=== PATIENT | female | born 1965 | race Caucasian/White ===

== ENCOUNTER → 2019-09-21 15:44 | Outpatient (CLI) | payer BC, SELFPAY ==
--- NOTE | ~2019-09-21 | XR_ITS ---
EXAMINATION: XR chest 2V 09/21/2019 16:10 INDICATION: Acute upper respiratory infection PROCEDURE: 2 view chest COMPARISON: 05/21/2010 FINDINGS: The lungs are clear. The cardiomediastinal silhouette is within normal limits. There are no pleural effusions. There is no pneumothorax suspected. IMPRESSION: 1: NO ACUTE CARDIOPULMONARY DISEASE. Reviewed, dictated and finalized at location A. ON FURNACE OPERATOR HELPER
== END ==
PROVIDERS: PCP Family Medicine; Visit Provider Family Medicine
DX: J06.9 Acute upper respiratory infection, unspecified (principal)
CPT/HCPCS: 71046

== ENCOUNTER → 2020-06-30 15:53 | Outpatient (CLI) | payer BC, SELFPAY ==
--- NOTE | ~2020-06-30 | MM_ITS ---
EXAMINATION: MM screening [facility] BI w elva HISTORY: Screening mammogram TECHNIQUE: Craniocaudal and mediolateral oblique 3-D tomosynthesis images were obtained and synthetic 2-D images were generated. CAD analysis was submitted and interpreted. COMPARISON: 12/11/2018, 11/30/2018, 10/14/2017, 09/28/2017, 06/11/2016 BREAST PARENCHYMAL COMPOSITION: There are scattered areas of fibroglandular density. FINDINGS: There is no evidence of suspicious mass, calcification, or architectural distortion to sugg est malignancy in either breast. There has been no suspicious interval change. IMPRESSION: 1. No mammographic evidence of malignancy. 2. Recommend routine screening mammography in one year. BI-RADS Category 1: Negative Reviewed, dictated and finalized at location A. ODONTIC ASSISTANT
== END ==
PROVIDERS: PCP Family Medicine; Visit Provider Obstetrics & Gynecology Gynecology
DX: Z12.31 Encounter for screening mammogram for malignant neoplasm of breast (principal)
CPT/HCPCS: 77063; 77067

== ENCOUNTER → 2021-10-16 16:31 | Outpatient (CLI) | payer BC, SELFPAY ==
--- NOTE | ~2021-10-16 | MM_ITS ---
EXAMINATION: MM screening [facility] BI w elva HISTORY: Screening mammogram TECHNIQUE: Craniocaudal and mediolateral oblique 3-D tomosynthesis images were obtained and synthetic 2-D images were generated. CAD analysis was submitted and interpreted. COMPARISON: 06/30/2020, 12/11/2018, 11/30/2018 BREAST PARENCHYMAL COMPOSITION: There are scattered areas of fibroglandular density. FINDINGS: There is no evidence of suspicious mass, calcification, or architectural distortion to sugg est malignancy in either breast. There has been no suspicious interval change. IMPRESSION: 1. No mammographic evidence of malignancy. 2. Recommend routine screening mammography in one year. BI-RADS Category 1: Negative Reviewed, dictated and finalized at location A. ON OPERATOR
== END ==
PROVIDERS: PCP Family Medicine; Visit Provider Nurse Practitioner
DX: Z12.31 Encounter for screening mammogram for malignant neoplasm of breast (principal)
CPT/HCPCS: 77063; 77067

== ENCOUNTER → 2021-11-17 18:12 | Outpatient (CLI) | payer BC, SELFPAY ==
--- NOTE | ~2021-11-17 | DEXA_ITS ---
Bone Density Report Name: NAZIA ZARATE Age: 56 Sex: Female Ethnicity: White Date of : 1965 Indication: postmenopausal; screening for osteoporosis; prior fracture; Referring Provider: Maryan, Christina Study: Bone densitometry was performed. Exam Date: November 17, 2021 Accession number: [id number] Bone Density: Region BMD T-score Z-score Classification AP Spine (L1-L4) 0.929 -1.1 0.3 Osteopenia Femoral Neck (Left) 0.605 -2.2 -1.0 Osteopenia Total Hip (Left) 0.782 -1.3 -0.4 Osteopenia Femoral Neck (Right) 0.585 -2.4 -1.2 Osteopenia Total Hip (Right) 0.743 -1.6 -0.7 Osteopenia Total Hip Mean 0.763 -1.5 -0.6 Osteopenia World Health Organization criteria for BMD impression classify patients as: Normal (T-score at or above -1.0), Osteopenia (T-score between -1.0 and -2.5), or Osteoporosis (T-score at or below -2.5). 10-year Fracture Risk(1): Major Osteoporotic Fracture 17% Hip Fracture 3.0% Reported Risk Factors: [place] (), Neck BMD=0.585, BMI=22.7, previous fracture (1) FRAX(R) Version 3.08. Fracture probability calculated for an untreated patient. Fracture probability may be lower if the patient has received treatment. Previous Exams: Region Exam Age BMD T-score BMD Change BMD Change Date g/cm2 vs Baseline vs Previous AP Spine(L1-L4) 11/17/2021 56 0.929 -1.1 -0.091* -0.091* 06/11/2016 51 1.020 -0.2 Total Hip(Left) 11/17/2021 56 0.782 -1.3 -0.080* -0.080* 06/11/2016 51 0.862 -0.7 Total Hip(Right) 11/17/2021 56 0.743 -1.6 -0.083* -0.083* 06/11/2016 51 0.826 -1.0 *Denotes significance at 95% confidence level, LSC for AP Spine = 0.022 g/cm2, LSC for Total Hip = 0.027 g/cm2 Clinical Information Provided by Patient: Has had a low trauma fracture Has used the following medications: Vitamin D, MULT VIT Patient maximum height was 61.5 Menopause Age: 47 No regular weight bearing exercise Drinks caffeinated beverages Onset of menses at age 12 Number of children 3 Impression: The patient has low bone mass, based on the Right Femoral Neck T-score. The patient has an estimated ten-year risk of hip fracture of 3% and an estimated ten-year risk of major fracture of 17%, based on the WHO FRAX algorithm. The patient has risk factors, including: previous fracture. The BMD for the AP Spine(L1-L4) decreased, changing by -0.091 since the last DXA exam. The BMD for the T
== END ==
PROVIDERS: PCP Family Medicine; Visit Provider Nurse Practitioner
DX: Z13.820 Encounter for screening for osteoporosis (principal); M85.88 Other specified disorders of bone density and structure, other site; M85.852 Other specified disorders of bone density and structure, left thigh; M85.851 Other specified disorders of bone density and structure, right thigh
CPT/HCPCS: 77080

== ENCOUNTER → 2022-04-21 16:16 | Outpatient (CLI) | payer OTHER, SELFPAY ==
--- NOTE | ~2022-04-21 | XR_ITS ---
EXAM: XR lumbar spine 2-3V DATE: 04/21/2022 16:47 HISTORY: Right radiculopathy, Low back pain . COMPARISON: 02/15/2019. FINDINGS: 5 nonrib-bearing lumbar-type vertebral bodies. Pedicles intact. Normal vertebral body alig nment. Vertebral body heights preserved. Moderate disc space narrowing at L3-4. Moderate narrowing at L4-5 and L5-S1, with vacuum phenomenon at L4-5. Mild narrowing at the remaining lumbar levels. Facet sclerosis and hypertrophy in the lower lumbar spine. No fracture or dislocation. IMPRESSION: Multilevel degenerative disc disease and lumbar spine, severe at L4-5. Multilevel facet a rthropathy. Reviewed, dictated and finalized at location K. IMPRESSION: Multilevel degenerative disc disease and lumbar spine, severe at L4 -5. Multilevel facet arthropathy.
--- NOTE | ~2022-04-21 | XR_ITS ---
EXAM: XR hip RT min 2V DATE: 04/21/2022 16:47 HISTORY: Right hip pain . COMPARISON: 02/18/2016. FINDINGS: Normal mineralization. No fracture or dislocation. No lytic or blastic lesion. Moderate sc lerosis and narrowing and osteophytosis in the right hip. Degenerative changes in the lumbar spine. N o erosion or periosteal change. Soft tissues within normal limits. IMPRESSION: Moderate right hip osteoarthritis. Reviewed, dictated and finalized at location K.
== END ==
PROVIDERS: PCP Family Medicine; Visit Provider Chiropractor
DX: M16.11 Unilateral primary osteoarthritis, right hip (principal); M51.36 Other intervertebral disc degeneration, lumbar region
CPT/HCPCS: 72100; 73502

== ENCOUNTER → 2022-08-27 07:55 | Outpatient (CLI) | payer OTHER, SELFPAY ==
--- NOTE | ~2022-08-27 | US_ITS ---
US abdomen limited DATE: 08/27/2022 08:31 INDICATION: Prior abnormal liver scan. History of cholelithiasis. TECHNIQUE: Real-time imaging of liver, pancreas, gallbladder COMPARISON: 01/24/[address] abdomen pelvis 01/13/2018 abdominal ultrasound examination FINDINGS: The abdominal aorta is of normal caliber. Inferior vena cava is unremarkable. No pancreatic mass lesion or pancreatic duct dilatation is noted. Multiple hepatic cysts are noted, measuring up to approximately 4.5 cm maximal dimension. Normal hepatopedal portal venous flow direction. There is cholelithiasis. There is mild thickening of the gallbladder wall Negative sonographic Marino's sign. IMPRESSION: Cholelithiasis and mild gallbladder wall thickening; negative sonographic Marino's sign Multiple hepatic cysts Reviewed, dictated and finalized at Location A. Reviewed, dictated and finalized at location B. ER CARE WORKER IMPRESSION: Cholelithiasis and mild gallbladder wall thickening; negative sonog raphic Marino's sign Multiple hepatic cysts
== END ==
PROVIDERS: PCP Family Medicine; Visit Provider Nurse Practitioner Family
DX: R93.2 Abnormal findings on diagnostic imaging of liver and biliary tract (principal); K80.20 Calculus of gallbladder without cholecystitis without obstruction; K76.89 Other specified diseases of liver
CPT/HCPCS: 76705

== ENCOUNTER → 2022-10-11 08:46 | Outpatient (CLI) | payer OTHER, SELFPAY ==
--- NOTE | ~2022-10-11 | CT_ITS ---
CT of the Abdomen and Pelvis: Indication: Liver lesion, abdominal pain Technique: 2.5 mm axial scans were obtained through the abdomen and pelvis prior to and following in travenous administration of 100 cc of Omnipaque 350. Dose reduction technique was used on this scan b y utilizing automated exposure control and iterative reconstruction technique. The dose-length produc t (DLP) was 581.72 mGy-cm. COMPARISON: CT dated 01/24/2018, ultrasound dated 08/27/2022 Findings: Scans through the lung bases are unremarkable. Nonenhancing hepatic cysts are present, largest of which is in the anterior right hepatic lobe, measu ring 3.7 cm in diameter. The spleen, pancreas, adrenals and kidneys are within normal limits. Small g allstones present. No evidence of aortic aneurysm. No lymphadenopathy. No bowel obstruction or bowel wall thickening. There is no evidence to suggest acute appendicitis. Images through the pelvis were performed. Urinary bladder unremarkable. No adnexal mass seen. No asci lara. Impression: Hepatic cysts. Cholelithiasis. Reviewed, dictated and finalized at location M. WARE COMPUTER SPECIALIST Impression: Hepatic cysts. Cholelithiasis.
== END ==
PROVIDERS: PCP Family Medicine; Visit Provider Nurse Practitioner
DX: K76.89 Other specified diseases of liver (principal); K80.20 Calculus of gallbladder without cholecystitis without obstruction; R10.30 Lower abdominal pain, unspecified
CPT/HCPCS: 74178; Q9967

== ENCOUNTER 2022-10-15 12:24 | Outpatient (CLI) | payer OTHER, SELFPAY ==
--- NOTE | 2022-10-15 12:39 | ECG_ITS ---
Measurements Intervals [place] Rate: 75 P: 29 WY: 143 QRS: 62 QRSD: 69 T: 61 QT: 378 QTc: 422 Interpretive Statements SINUS RHYTHM LOW QRS VOLTAGE IN PRECORDIAL LEADS [QRS DEFLECTION < 1.0 mV IN CHEST LEADS] OTHERWISE NORMAL ECG NO PREVIOUS ECG AVAILABLE FOR COMPARISON Electronically Signed On 10-15-2022 15:39:55 SKEIN YARN DYER HELPER by Deng Alfaro M.D.
[2022-10-15 13:50] LABS: Amylase 101 U/L (30-110); Lipase 225 U/L (23-300)
== END 2022-10-15 12:25 | disposition home or self-care (01) ==
LOC: ANHSURGERY 12:28
PROVIDERS: PCP Family Medicine; Visit Provider Surgery
DX: K80.10 Calculus of gallbladder with chronic cholecystitis without obstruction (principal); Z01.818 Encounter for other preprocedural examination
CPT/HCPCS: 36415; 82150; 83690; 86850; 86900; 86901; 93005

== ENCOUNTER 2022-10-20 00:39 | Day surgery (SDC) | payer OTHER, SELFPAY ==
[2022-10-14 09:30] VITALS: BMI 22.3
--- NOTE | 2022-10-14 09:35 | PC.NURSE ---
Report to the Outpatient Waiting Room, entrance under the green pavilion located off [facility], at time 10:30 on date 10/20/22. Planned Procedure Time: 12:30. Time changes happen often and if your time is changed the preop area will call you the afternoon before. - You and your visitor will be asked to self-screen and do not enter if you have any COVID symptoms. - Only one visitor is requested with a max of two and NO children visitors are allowed at this time. - The patient visitor may be requested to leave or wait in car when not with patient due to distancing restrictions. - A mask is optional within the hospital at this time. Patients may have clear liquids (water, carbonated beverages, clear teas, apple juice) until 3 hours prior to surgery (9:30) with a maximum of 20 ounces. - No food from midnight until time of surgery Take the following medications with a SIP of water the morning of surgery: HYDROXYZINE IF NEEDED DO NOT STOP ANY OF YOUR OTHER PRESCRIPTION MEDICATIONS PRIOR TO SURGERY EXCEPT THE FOLLOWING Medications to discontinue per physician: N/A Date to take last dose: N/A Please no make-up, nail ugandan, hairspray, perfume, deodorant, or body powder the day of surgery. No jewelry (including any body piercings) or valuables the day of surgery, leave them at home. Please take a shower or bath the night before, or the morning of, surgery with an antibacterial soap (HIBICLENS). Wear comfortable, loose fitting clothing. - Jewelry must be removed prior to entering the operating room. Rings and piercings that are not removed may be cut off. - The hospital will not accept responsibility for valuables. - Please leave all valuables, including medications, at home the day of surgery. If you are going home after surgery, a licensed sales warehouse driver must drive you home. - NO public transportation without another adult if you receive anesthesia. - We recommend that an adult stay with you for 24 hours following discharge. - We also recommend that you do not drive, make important decision, drink alcoholic beverages, or take any drugs that were not prescribed by your health care provider for at least 24 hours after your discharge time. Follow any additional instructions given to you from your surgeon. If you or anyone in your household have experienced Covid symptoms in the past week, please notify your surgeon or the nurse liaison at the phone number below for possible testing. Telephone instructions given to MONIE ZARATE and asked if any additional questions and then verbalized understanding. Patient advised to call surgeon office or pre surgery nurse liaison [phone] if any additional questions.
[2022-10-20] VITALS (12 sets, daily range): BP systolic 104–138; BP diastolic 56–81; PULSE 60–86; RESP 12–17; TEMP 36.2–36.9; O2SAT 96–100
[2022-10-20] MEDS: LACTATED RINGERS 1,000 ML 30 ML IV CONT ×3 (11:13→14:40)
--- NOTE | 2022-10-20 11:20 | WPDHPUPDATE1 ---
History and Physical Update Update Date/Time: 10/20/22 11:20 History and Physical has been reviewed, including an updated exam of the patient. There are NO changes in the patient's condition. Risks, benefits, and alternatives have been discussed and questions answered. Patient agrees to proceed with procedure.
--- NOTE | 2022-10-20 11:40 | WPDANESEPPF ---
Anes - Initial Pre Proc Eval Procedure: Operation Date: 10/20/22 12:30 Proposed Procedures p Laparoscopic Cholecystectomy - Cathy Donnelly MD Date/Time: 10/20/22 11:40 Surgeon: Cathy Donnelly MD Pre Op Diagnosis: chronic calculus cholecystitis Patient Data Age: 57 Gender: F Height: 1.55 m Weight: 51.65 kg Allergies Allergy/AdvReac Type Severity Reaction Status Date / Time codeine Allergy Severe NAUSEA AND Verified 10/14/22 09:29 VOMITING meperidine AdvReac Mild SAW Verified 10/14/22 09:29 SPOTS,HALLUCINATIONS Home Medications Medication Instructions Recorded Confirmed Type hydroxyzine HCl 25 mg tablet 25 mg PO TID PRN anxiety #20 tabs 10/13/22 10/14/22 Rx omeprazole 40 mg capsule,delayed 40 mg PO DAILY #30 caps 10/13/22 10/14/22 Rx release dicyclomine 20 mg tablet 20 mg PO TID PRN abdominal 10/14/22 Rx discomfort #90 tabs Patient hx anesthesia problems: none Family hx anesthesia problems: none Results Review: All pre-operative results and documents have been reviewed as part of the pre-operative evaluation. FOR[facility]LY [facility] Past Medical History Medical History Body mass index (BMI) 21 to less than 23 Colon cancer screening Copper metabolism disorder Epigastric abdominal pain Liver cyst Lower abdominal pain Surgical History Surgical History History of delivery Family History Family History Father Family history of malignant neoplasm Heart disease Hypertension Diabetes mellitus Mother Family history of lung cancer Social History Social History Smoking status: Never smoker Tobacco type: cigarettes Alcohol intake: never Drinks per week: 0 Alcohol use details: rarely Substance use: never Substance use type: does not use Living arrangements: with family Occupation/Education: occupation Additional occupation/education comments: [place] Spiritual care concerns: No Anes - Eval Final PreProcedure Day of Procedure 10/20/22 11:40 Patient weight: normal Heart: regular rate and rhythm Lungs: clear to auscultation Airway: Mallampati scale class II Neurological: alert and oriented Last oral intake: >/= 8 hours ASA classification: II Emergent: no Anesthetic plan: proceed Anesthesia type and monitoring: general ETT and standard monitoring Results Review: All pre-operative results and documents have been reviewed as part of the pre-operative evaluation. Informed Consent: The patient's anesthetic plan and its attendant risks and benefits were discussed with the patient/family/POA. Questions were solicited and answers provided to the satisfaction of the patient/family/POA.
[2022-10-20] MEDS: KETOROLAC 15 MG/ML VIAL (*BKC) IV PUSH (11:45)
[2022-10-20] MEDS: ACETAMINOPHEN 500 MG TABLET 1000 MG PO (11:46)
[2022-10-20] MEDS: SCOPOLAMINE 1.5 MG PATCH TRANSDERM (11:48)
[2022-10-20] MEDS: ceFAZolin 2 GM/D5W 50 ML 2 GM/50 ML BAG IVPB (11:59)
[2022-10-20] MEDS: BUPIVACAINE/EPINEPHRINE 0.5% 50 ML VIAL INFILTRATE (12:20)
--- NOTE | 2022-10-20 12:55 | W.PM.PROC2 ---
Procedure Note - Detailed Date of Procedure 10/20/22 Pre-op Diagnosis chronic calculus cholecystitis Post-op Diagnosis Same Procedure Performed Laparoscopic cholecystectomy Surgeon Cathy Donnelly MD Anesthesia General Indications 57-year-old female presented to the office complaining of postprandial right upper quadrant abdominal pain associated with nausea and vomiting. Workup including imaging significant for cholecystitis, cholelithiasis. Findings Cholecystitis with cholelithiasis Description of Procedure The patient was taken to the operating room placed in the supine position. After adequate induction of general anesthesia, the patient was prepped and draped in normal sterile fashion. A time-out was then performed to verify the patient's identity as well as the procedure being performed. I then made a 5 mm incision in the infraumbilical region. Through this, a Veress needle was placed into the peritoneal cavity and CO2 gas was then insufflated. After adequate pneumoperitoneum was achieved, the Veress needle was removed and a 5 mm optiview trocar was placed through this incision under direct visualization. I then placed the laparoscope through this trocar site and under direct visualization placed a further 12 mm subxiphoid port as well as 2 additional 5 mm ports in the right upper abdomen. The gallbladder was then identified and was noted to be moderately inflamed, distended, and full of gallstones. I was able to place a grasper at the dome of the gallbladder and this was retracted anterior and cephalad up over the liver. A 2nd retractor was then placed at the infundibulum and retracted laterally, this allowed visualization of the triangle of Calot. I then was able to visualize the cystic duct in its entirety from its proximal insertion into the gallbladder, to its distal junction with the common hepatic/common bile duct junction. At this point, I carefully skeletonized the proximal cystic duct with the [place] dissector. I then clipped and transected the proximal cystic duct. Next I visualized the cystic artery. Again the artery was skeletonized, clipped, and transected. I then used the Bovie cautery to take down the peritoneal attachments of the gallbladder off the liver bed. This was somewhat difficult given the amount of inflammation in the posterior space. Once the gallbladder specimen was completely detached, an endo-pouch was placed through the 12 mm port site. I then placed the gallbladder specimen into the Endo pouch and removed the endo-pouch from the 12 mm port site. The specimen will now be sent to pathology for further review. I then copiously irrigated the right upper quadrant. Some mild oozing was noted in the liver bed and this was controlled with the bovie cautery. Hemostasis was noted in the liver bed, the clips were noted to be in good position on both the cystic duct stump and the cystic artery stump. No other pathology was noted in the right upper quadrant. I then moved the laparoscope to the subxiphoid port. No iatrogenic injury or other pathology was noted in the lower abdomen. I then closed the 12 mm trocar site under direct visualization using the Jerrell cone and 0 Vicryl suture. At this point, the abdomen was desufflated and all ports removed. All port sites were then closed with 4.O Monocryl subcuticular sutures. Dermabond was placed on each incision. The patient tolerated the procedure well, was extubated in the operating room postoperative and will be transferred to the recovery room in stable condition Estimated Blood Loss 5 Drains No Packing No Pathology Yes Complications No immediate complications Condition Stable Disposition PACU [facility] Billing Surgery - Charge Forward: Surgery Billing
[2022-10-20] MEDS: fentaNYL CITRATE INJ (*CRX) 100 MCG/2 ML VIAL 25 MCG IV PUSH ×2 (13:28→13:33)
[2022-10-20] MEDS: ONDANSETRON INJ 4 MG/2 ML VIAL IV PUSH (13:30)
[2022-10-20] MEDS: diphenhydrAMINE HCl INJ 50 MG/ML VIAL 25 MG IV PUSH (14:20)
[2022-10-20] MEDS: PROMETHAZINE HCL 25 MG/ML AMPUL 12.5 MG IV PUSH (15:43)
--- NOTE | 2022-10-20 15:43 | SUR.PHASEII ---
1535- Call to Dr. Collazo- patient reports being nauseated after anti emetics and third bag of LR. Orders obtained for 12.5MG phenergan IVP. 1543- Phenergan 12.5MG IVP given, see MAR.
== END 2022-10-20 16:55 | disposition home or self-care (01) ==
PROVIDERS: PCP Family Medicine; Visit Provider Surgery
PROC: 0FT44ZZ Resection of Gallbladder, Percutaneous Endoscopic Approach (ICD-10-PCS; CPT 47562; principal; 2022-10-20 12:30)
DX: D13.5 Benign neoplasm of extrahepatic bile ducts (principal)
CPT/HCPCS: 47562; 36415; 82150; 83690; 86850; 86900; 86901; 88304; 93005; A9270; J0690; J1100; J1200; J1885; J2250; J2405; J2550; J2704; J2710; J3010; J7030; J7120

== ENCOUNTER → 2023-01-03 16:12 | Outpatient (CLI) | payer OTHER, SELFPAY ==
--- NOTE | ~2023-01-03 | MM_ITS ---
EXAMINATION: MM screening [facility] BI w elva HISTORY: Screening mammogram TECHNIQUE: Craniocaudal and mediolateral oblique 3-D tomosynthesis images were obtained and synthetic 2-D images were generated. CAD analysis was submitted and interpreted. COMPARISON: 10/16/2021, 06/30/2020 BREAST PARENCHYMAL COMPOSITION:There are scattered areas of fibroglandular density. FINDINGS: No suspicious mass, calcification, or architectural distortion are identified in either darshan ast to suggest malignancy. There has been no suspicious interval change. IMPRESSION: No mammographic evidence of malignancy. Recommend routine screening mammography in one year. BI-RADS Category 1: Negative Reviewed, dictated and finalized at location .
== END ==
PROVIDERS: PCP Nurse Practitioner; Visit Provider Nurse Practitioner
DX: Z12.31 Encounter for screening mammogram for malignant neoplasm of breast (principal)
CPT/HCPCS: 77063; 77067

== ENCOUNTER 2023-08-13 15:25 | Emergency (ER) | payer OTHER, SELFPAY ==
--- NOTE | ~2023-08-13 | XR_ITS ---
XR wrist LT min 3V 08/13/2023 16:02 Indication: Left wrist pain after fall Procedure: 4 views left wrist Comparison: 08/08/2016 Findings: No acute fracture or traumatic malalignment. There are degenerative changes of the first ca rpal metacarpal joint. No foreign bodies. No focal soft tissue abnormality. Impression: 1: No acute fracture. Reviewed, dictated and finalized at location A. IRON WORKER Impression: 1: No acute fracture.
[2023-08-13 15:42] VITALS: BP 128/82; PULSE 70; RESP 18; TEMP 36.4; O2SAT 99
--- NOTE | 2023-08-13 16:20 | ED.UPPEXIN ---
HPI - Extremity Injury (Upper) General Chief Complaint: Extremity Injury, Upper Stated Complaint: fall upper extremity injury Time Seen by Provider: 08/13/23 15:50 Source: patient Mode of arrival: ambulatory Limitations: no limitations History of Present Illness HPI narrative: Edna is a 4-year-old female patient presenting to the clinic today with complaints of a left wrist injury. She reports she fell over grand kid around 3:00 today. And out reached her wrist to catch her fall. Is having pain to the dorsal radial wrist Related Data Home Medications Medication Instructions Recorded Confirmed No Home Medications 05/02/23 05/02/23 Allergies Allergy/AdvReac Type Severity Reaction Status Date / Time codeine AdvReac Severe NAUSEA AND Verified 05/09/23 15:19 VOMITING meperidine AdvReac Mild SAW Verified 05/09/23 15:19 SPOTS,HALLUCINATIONS Review of Systems Review of Systems: Pertinent positives per HPI. Patient denies any fever, chills, rash, headache, visual changes, dizziness, cough, runny nose, sore throat, shortness of breath, chest pain, palpitations, nausea, vomiting, diarrhea, constipation, abdominal pain, or any urinary issues. FORMERLY [facility] Past Medical History Medical History Body mass index (BMI) 21 to less than 23 Colon cancer screening Copper metabolism disorder Epigastric abdominal pain Liver cyst Lower abdominal pain Surgical History Surgical History History of delivery S/P laparoscopic cholecystectomy 10/20/22 Family History Family History Father Family history of malignant neoplasm Heart disease Hypertension Diabetes mellitus Mother Family history of lung cancer Social History Social History Smoking status: Never smoker Tobacco type: cigarettes Alcohol intake: never Drinks per week: 0 Alcohol use details: rarely Substance use: never Substance use type: does not use Lack of Transportation: No Lack of Food: Never True Current Housing: I Have Housing Concerned About Future Housing: No Difficulty Paying Gas/Electric Bills: No Difficulty Paying for Meds: No Currently Unemployed: No Education: High School Diploma/GED Difficulty w/ Childcare or Family Care: No Living arrangements: with family Occupation/Education: occupation Additional occupation/education comments: [place] Spiritual care concerns: No Comments At the time of my signature, I reviewed and agree with the nursing past medical, surgical, social, and family history. There is no relevant family history pertinent to the patient complaint. Exam Narrative: General: Well-developed, well nourished, in no apparent distress Head: Normocephalic, atraumatic. Cardio: Regular rate and rhythm, s1 and s2 normal, no murmur appreciated. Resp: Clear to auscultation bilaterally, no rhonchi, rales, wheezing or rubs. Musculoskeletal: No deformity, tender to palpation over the dorsal radial wrist, grossly normal range of motion, muscle strength strong and equal, peripheral pulse strong, no edema, no cyanosis, normal gait and station Course Course Emergency Course: Portions of this record may have been created with voice recognition software. Level of Care: Express Care Visit Vital Signs Vital signs: Vital Signs Temperature 36.4 C L 08/13/23 15:42 Pulse Rate 70 08/13/23 15:42 Respiratory Rate 18 08/13/23 15:42 Blood Pressure 128/82 08/13/23 15:42 Pulse Oximetry 99 08/13/23 15:42 Oxygen Delivery Room Air 08/13/23 15:42 Temperature 36.4 C L 08/13/23 15:42 Pulse Rate 70 08/13/23 15:42 Respiratory Rate 18 08/13/23 15:42 Blood Pressure 128/82 08/13/23 15:42 Pulse Oximetry 99 08/13/23 15:42 Oxygen D
== END 2023-08-13 16:25 | disposition home or self-care (01) ==
PROVIDERS: Emergency Provider Nurse Practitioner Family; PCP Family Medicine
DX: S63.502A Unspecified sprain of left wrist, initial encounter (principal); W01.0XXA Fall on same level from slipping, tripping and stumbling without subsequent striking against object, initial encounter
CPT/HCPCS: 73110; 99213; G0463

== ENCOUNTER 2023-11-24 15:32 | Outpatient (CLI) | payer OTHER, SELFPAY ==
--- NOTE | ~2023-11-24 | DEXA_ITS ---
Bone Density Report Name: NAZIA ZARATE Age: 58 Sex: Female Ethnicity: White Date of : 1965 Indication: osteopenia; prior fracture; postmenopausal Referring Provider: Maryan, Christina Study: Bone densitometry was performed. Exam Date: November 24, 2023 Accession number: [id number] Bone Density: Region BMD T-score Z-score Classification AP Spine (L1-L4) 0.912 -1.2 0.2 Osteopenia Femoral Neck (Left) 0.580 -2.4 -1.1 Osteopenia Total Hip (Left) 0.761 -1.5 -0.5 Osteopenia World Health Organization criteria for BMD impression classify patients as: Normal (T-score at or above -1.0), Osteopenia (T-score between -1.0 and -2.5), or Osteoporosis (T-score at or below -2.5). 10-year Fracture Risk(1): Major Osteoporotic Fracture 18% Hip Fracture 3.2% Reported Risk Factors: [place] (), Neck BMD=0.580, BMI=23.1, previous fracture (1) FRAX(R) Version 3.08. Fracture probability calculated for an untreated patient. Fracture probability may be lower if the patient has received treatment. Previous Exams: Region Exam Age BMD T-score BMD Change BMD Change Date g/cm2 vs Baseline vs Previous AP Spine(L1-L4) 11/24/2023 58 0.912 -1.2 -0.108* -0.017 11/17/2021 56 0.929 -1.1 -0.091* -0.091* 06/11/2016 51 1.020 -0.2 Total Hip(Left) 11/24/2023 58 0.761 -1.5 -0.101* -0.021 11/17/2021 56 0.782 -1.3 -0.080* -0.080* 06/11/2016 51 0.862 -0.7 *Denotes significance at 95% confidence level, LSC for AP Spine = 0.022 g/cm2, LSC for Total Hip = 0.027 g/cm2 Clinical Information Provided by Patient: Has had a low trauma fracture Has used the following medications: Vitamin D, MTV Patient maximum height was 61.5 Menopause Age: 47 No regular weight bearing exercise Drinks caffeinated beverages Onset of menses at age 12 Number of children 3 Impression: The patient has low bone mass, based on the Left Femoral Neck T-score. The patient has an estimated ten-year risk of hip fracture of 3.2% and an estimated ten-year risk of major fracture of 18%, based on the WHO FRAX algorithm. The patient has risk factors, including: previous fracture. No significant bone loss was observed. Discussion: BONE DENSITY IS LOW AT ONE OR MORE SKELETAL SITES. THE PATIENT'S BMD AND CLINICAL RISK FACTORS CONTRIBUTE TO THIS PATIENT'S INCREASED RISK OF FRACTURE. This patient's lowest T-score is low at one or more skeletal sites. It meets the World Health Organization's (WHO) criteria
== END 2023-11-24 15:33 ==
LOC: MICIMG 15:33
PROVIDERS: PCP Family Medicine; Visit Provider Nurse Practitioner
DX: M85.88 Other specified disorders of bone density and structure, other site (principal); M85.852 Other specified disorders of bone density and structure, left thigh
CPT/HCPCS: 77080

== ENCOUNTER 2024-02-10 10:37 | Outpatient (CLI) | payer OTHER, SELFPAY ==
--- NOTE | ~2024-02-10 | MM_ITS ---
EXAMINATION: MM screening [facility] BI w elva HISTORY: Screening TECHNIQUE: Craniocaudal and mediolateral oblique 3-D tomosynthesis images were obtained and synthetic 2-D images were generated. CAD analysis was submitted and interpreted. COMPARISON: Comparison to multiple prior studies sequentially, with oldest reviewed study dated 11/30. BREAST PARENCHYMAL COMPOSITION: Not dense: There are scattered areas of fibroglandular density. FINDINGS: There is no evidence of suspicious mass, calcification, or architectural distortion to sugg est malignancy in either breast. There has been no suspicious interval change. IMPRESSION: 1. No mammographic evidence of malignancy. 2. Recommend routine screening mammography in one year. BI-RADS Category 1: Negative Reviewed, dictated and finalized at location B.
== END 2024-02-10 10:38 ==
PROVIDERS: PCP Nurse Practitioner; Visit Provider Nurse Practitioner
DX: Z12.31 Encounter for screening mammogram for malignant neoplasm of breast (principal)
CPT/HCPCS: 77063; 77067

== ENCOUNTER 2024-08-16 13:53 | Outpatient (CLI) | payer BC, SELFPAY ==
--- NOTE | ~2024-08-16 | US_ITS ---
EXAMINATION: US transvaginal DATE: 08/16/2024 14:30 INDICATION: Pelvic pain TECHNIQUE: Multiple transabdominal and endovaginal sonographic images of the pelvis were obtained. COMPARISON: 01/13/2018; CT abdomen pelvis 10/11/2022 FINDINGS: Uterus: 5.6 x 3.3 x 4.2 cm. Heterogeneous uterine parenchyma. Prominent uterine and periuterine veins . Endometrial complex measures 3 mm. Right Ovary: Not visualized. No definite adnexal mass. Left Ovary: Not visualized. No definite adnexal mass. There is no free fluid in the pelvis. IMPRESSION: Bilateral ovaries not visualized. Heterogeneous uterine parenchyma as can be seen with adenomyosis and/or fibroid disease. Prominent uterine and periuterine veins, consider pelvic congestion in the differential. Reviewed, dictated and finalized at location K. ERIES INSPECTOR IMPRESSION: Bilateral ovaries not visualized. Heterogeneous uterine parenchyma as can be seen with adenomyosis and/or fibroid disease. Prominent uterine and periuterine veins, consider pelvic congestion in the diff erential.
== END 2024-08-16 13:54 | disposition home or self-care (01) ==
PROVIDERS: PCP Nurse Practitioner; Visit Provider Nurse Practitioner
DX: N85.8 Other specified noninflammatory disorders of uterus (principal); I86.2 Pelvic varices
CPT/HCPCS: 76830

== ENCOUNTER 2024-09-26 12:45 | Outpatient (CLI) | payer BC, SELFPAY ==
--- NOTE | ~2024-09-26 | MR_ITS ---
EXAMINATION: MR shoulder LT wo con DATE: 09/26/2024 13:22 INDICATION: Progressive chronic left shoulder pain and decreased range of motion TECHNIQUE: Magnetic resonance imaging (MRI) of the left shoulder was performed without intravenous co ntrast. Sequences included axial PD-weighted FS FSE, coronal oblique PD-weighted FS FSE, coronal obli que T2-weighted FS FSE, sagittal PD-weighted FS FSE, and sagittal T1-weighted SE. COMPARISON: None. FINDINGS: Coracoacromial arch: The acromion undersurface is curved in morphology (type II). The coracoacromial ligament is normal. A cromioclavicular joint is normal. Rotator cuff: The supraspinatus, infraspinatus and teres minor tendons are normal. The subscapularis tendon is norm al. Normal rotator cuff muscle bulk and signal. Biceps tendon, glenoid labrum and glenohumeral cartilage: Long head of the biceps tendon is normal. Likely Renee complex with absent anterosuperior glenoid la wyatt and thickened cordlike middle glenohumeral ligament. No labral tear. Glenohumeral cartilage is n ormal. Fluid: Physiologic amount of fluid in the glenohumeral joint and biceps tendon sheath. No loose osteochondr al bodies. No abnormal fluid signal in the subacromial/subdeltoid bursa to suggest bursitis. Bones: Low signal intensity bone island at the lateral head of the left clavicle. Otherwise normal marrow si gnal with no edema, fracture or abnormal marrow replacing process. There is thickened intermediate si gnal intensity soft tissue replacing the normal fat signal at the rotator cuff interval as well as th ickening and mild increased signal of the capsule at the axillary recess, both findings which can be seen in the setting of adhesive capsulitis which is a clinical diagnosis. IMPRESSION: 1. Thickened capsule at the axillary recess and thickened soft tissues at the rotator cuff interval, both findings characteristic of adhesive capsulitis which is a clinical diagnosis. 2. Likely normal anatomic variant labral [place] complex without tear. Reviewed, dictated and finalized at location A. F FIELD ENGINEER IMPRESSION: 1. Thickened capsule at the axillary recess and thickened soft tissues at the r otator cuff interval, both findings characteristic of adhesive capsulitis which is a clinical diagnosis. 2. Likely normal anatomic variant labral Renee complex without tear.
== END 2024-09-26 12:46 | disposition home or self-care (01) ==
LOC: MICIMG 12:49
PROVIDERS: PCP Family Medicine; Visit Provider Nurse Practitioner Adult Health
DX: R29.898 Other symptoms and signs involving the musculoskeletal system (principal)
CPT/HCPCS: 73221

== ENCOUNTER 2025-05-30 15:33 | Outpatient (CLI) | payer BC, SELFPAY ==
--- NOTE | ~2025-05-30 | MM_ITS ---
EXAMINATION: MM screening [facility] BI w [facility] HISTORY: Screening TECHNIQUE: Craniocaudal and mediolateral oblique 3-D tomosynthesis images were obtained and synthetic 2-D images were generated. CAD analysis was submitted and interpreted. COMPARISON: Comparison to multiple prior studies sequentially, with oldest reviewed study dated , 06/30/2020 BREAST PARENCHYMAL COMPOSITION: There are scattered areas of fibroglandular density. FINDINGS: There is no evidence of suspicious mass, calcification, or architectural distortion to suggest malignancy in either breast. IMPRESSION: 1. No mammographic evidence of malignancy. 2. Recommend routine screening mammography in one year. BI-RADS Category 1: Negative Reviewed, dictated and finalized at location B.
== END 2025-05-30 15:34 | disposition home or self-care (01) ==
LOC: MICIMG 15:34
PROVIDERS: PCP Family Medicine; Visit Provider Obstetrics & Gynecology Gynecology
DX: Z12.31 Encounter for screening mammogram for malignant neoplasm of breast (principal)
CPT/HCPCS: 77063; 77067